=== PATIENT | female | born 1960 ===

== ENCOUNTER 2018-06-01 10:25 | Emergency (ER) | payer OTHER ==
--- OUTSIDE RECORDS SUMMARY | 2018-06-01 10:34 | XMS REPORT ---
:1960 External Reference #:[id number] Demographics Address [address] [place] [address] Home Phone [phone] Mobile Phone [phone] Preferred Language Khmer Marital Status Not Or Samaritan Affiliation Unknown Race White Ethnic Group Not Or Author Organization [facility] 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 General Cancer both parents Father Rectal Cancer Father due to Rectal Cancer () Mother Breast Cancer Mother Stroke Social History Type Date Description Comments Marital Status Patient is Lives With Alone Diet Patient follows no dietary restrictions Occupation Currently Working full-time [employer] [employer] [facility]. 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 ADL's/IADL's Independent with all ADL's Cigarette Use Patient is a current cigarette smoker, smokes every day Cigarette Use currently smokes 1/2 Pack - 3/4 pack x 38 yeras Daily ETOH Use Rarely consumes alcohol Recreational Drug Use Denies Drug Use Daily Caffeine Current Caffeine User Exercise Type/Frequency Walks daily Exercise Type/Frequency Does housework daily Allergies, Adverse Reactions, Alerts Date Description Reaction Status Severity Comments 05/04/2011 NKDA active Medications Medication Date Status Form Strength Qnty SIG Indications Ordering Provider Zyrtec Allergy Active Capsules 10mg 1 by Unknown 00 mouth every day Aleve Active Capsules 220mg 2 by Unknown 00 mouth every day if needed for pain No Active 05/04/20 Hx ReinaYadiel Medications Belle De La Rosa MD, PhD 05/23/20 18 Medications Administered in Office Medication Date Status Form Strength Qnty SIG Indications Ordering Provider Betamethasone Administered Injection Truong, Acetate & Sodium 2018 Marly Alba, Phosphate 3 MG RPAC Of Each Vital Signs Date Vital Result Comment 05/23/2018 BP Systolic 138 mmHg BP Diastolic 78 mmHg Body Temperature 97.6 F Heart Rate 72 /min Height 68 inches 5'8" Weight 147.00 lb BMI (Body Mass Index) 22.3 kg/m2 BSA (Body Surface Area) 1.79 m2 [place] body weight in kilograms 63 O2 % BldC Oximetry 97 % Pain Level 2 05/04/2011 BP Systolic Sitting Right Arm 130 mmHg BP Diastolic Sitting Right Arm 80 mmHg Heart Rate 78 /min regular Respiratory Rate 16 /min Height 68 inches 5'8" Weight 145.00 lb BMI (Body Mass Index) 22.0 kg/m2 Results Description No Information Procedures Date CPT Code Description Status 05/23/2018 67068 Injection:Tendon Sheath,Lig. Cyst Completed 05/10/2011 17413 ECHO Transthoracic Inc Performance Continuous Completed Electrocardio 05/10/2011 64622 Event Monitor Inter/Review Only Completed 05/04/2011 72781 EKG-Tracing And Report Completed 05/04/2011 65661 EKG-Tracing And Report Completed Encounters Type Date Location Provider CPT E/M Dx Office Visit 05/23/2018 10:45a Orthopaedic Office Marly Truong, [address]706 M65.331 RPAC M79.644 Office Visit 05/04/2011 9:40a Cardiology Office Marily Pichardo ANP [address] [phone] Plan of Care Future Appointment(s):06/20/2018 3:15 pm - Marly Truong, RPAC at Orthopaedic Mgjref0305/23/2018 - Marly Truong, RPACM65.331 Trigger finger, right middle emyaarB97.644 Pain in right finger(s)AllComments:Treatment options were discussed. I recommended a steroid injection and she was agreeable to this.A separate note was dictated. I suggested ice for the next couple of days. She will follow-up in four weeks, sooner with any problems or concerns.
--- OUTSIDE RECORDS SUMMARY | 2018-06-01 10:35 | XMS REPORT ---
:1960 External Reference #:[id number] Demographics Address [address] [place] [address] Home Phone [phone] Mobile Phone [phone] Preferred Language Bermudian Marital Status Not Or Gnosticism Affiliation Unknown Race White Ethnic Group Not Or Author Organization [facility] Address [address], [address] [place] [address] Phone [phone] Care Team Providers Name Role Phone Joshua Kumar PA Care Team Information Smoke And Flame Specialist Unavailable Joshua Kumar PA Primary Care Physician Unavailable Payers Type Date Identification Numbers Payment Provider Subscriber Commercial Policy Number: [id number] Vonnie/Peg Dillon Vanessa Albarran PayID: [id number] [address] [place] [address] Problems Description No Information Family History Date Family Member(s) Problem(s) Comments General No known family history of CAD. General Cancer both parents Father Rectal Cancer Father due to Rectal Cancer () Mother Breast Cancer Mother Stroke Social History Type Date Description Comments Marital Status Patient is Lives With Alone Diet Patient follows no dietary restrictions Occupation Currently Working full-time [employer] [facility]. 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 ADL's/IADL's Independent with all [...] needed for pain No Active 05/04/20 Hx HuangYadiel Medications Belle De La Rosa MD, PhD 05/23/20 18 Medications Administered in Office Medication Date Status Form Strength Qnty SIG Indications Ordering Provider Betamethasone 05/23/ Administered Injection Truong, Acetate & Sodium 2018 Marly Alba, Phosphate 3 MG RPAC Of Each Vital Signs Date Vital Result Comment 05/23/2018 BP Systolic 138 mmHg BP Diastolic 78 mmHg Body Temperature 97.6 F Heart Rate 72 /min Height 68 inches 5'8" Weight 147.00 lb BMI (Body Mass Index) 22.3 kg/m2 BSA (Body Surface Area) 1.79 m2 [place] body weight in kilograms 63 O2 % BldC Oximetry 97 % Pain Level 2 05/04/2011 BP Systolic Sitting Right Arm 130 mmHg BP Diastolic Sitting Right Arm 80 mmHg Heart Rate 78 /min regular Respiratory Rate 16 /min Height 68 inches 5'8" Weight 145.00 lb BMI (Body Mass Index) 22.0 kg/m2 Results Description No Information Procedures Date CPT Code Description Status 05/23/2018 58288 Injection:Tendon Sheath,Lig. Cyst Completed 05/10/2011 22767 ECHO Transthoracic Inc Performance Continuous Completed Electrocardio 05/10/2011 97025 Event Monitor Inter/Review Only Completed 05/04/2011 12941 EKG-Tracing And Report Completed 05/04/2011 03754 EKG-Tracing And Report Completed Encounters Type Date Location Provider CPT E/M Dx Office Visit 05/23/2018 10:45a Orthopaedic Office Marly Truong, 72304 M65.331 RPAC Office Visit 05/04/2011 9:40a Cardiology Office Marily Pichardo ANP 94407 [phone] Plan of Care Future Appointment(s):06/20/2018 3:15 pm - Marly Truong, RPAC at Orthopaedic Ddfksi8905/23/2018 - Marly Truong, RPACM65.331 Trigger finger, right middle finger
[2018-06-01] MEDS ORDERED: Albuterol/Ipratropium NEB.SOL* Albuterol 2.5 MG/Ipratropium 0.5 MG 3 ML INH ONE (10:42)
--- NOTE | 2018-06-01 10:44 | UC ---
Respiratory Complaint HPI - HPI Summary HPI Summary: Pt presents with c/o chest congestion, cough, SOB, wheezing X 7 days. Pt has been using nebulizer at home with albuterol, and albuterol INH. Pt reports that her cough, SOB and wheezing have been worsening over last 24 hours. Pt is seated, unable to complete full sentence without coughing, pt is "tripodding" and is using accessory chest muscle to breath. - History of Current Complaint Stated Complaint: CHEST CONGESTION, COUGH Time Seen by Provider: 06/01/18 10:35 Hx Obtained From: Patient ?: No Onset/Duration: Gradual Onset, Lasting Days - 7, Still Present, Worse Since - onset Timing: Constant Severity Initially: Mild Severity Currently: Severe Character: Cough: Nonproductive Aggravating Factors: Exertion, Deep Breaths, Recumbent Position Alleviating Factors: Nothing Associated Signs And Symptoms: Positive: Wheezing, URI, Nasal Congestion - Risk Factors Pulmonary Embolism Risk Factors: Negative Cardiac Risk Factors: Negative Pseudomonas Risk Factors: Negative Tuberculosis Risk Factors: Negative - Allergies/Home Medications Allergies/Adverse Reactions: Allergies Allergy/AdvReac Type Severity Reaction Status Date / Time No Known Allergies Allergy Verified 06/01/18 10:36 Home Medications: Home Medications Cetirizine* [ZyrTEC 10 MG TAB*] 10 mg PO DAILY 06/01/18 [History Confirmed 06/01] Naproxen Sodium [Aleve] 220 mg PO PRN 06/01/18 [History] PMH/Surg Hx/FS Hx/Imm Hx Previously Healthy: Yes Respiratory History: COPD - Surgical History Surgical History: Yes Surgery Procedure, Year, and Place: hysterectomy - Family History Known Family History: Positive: Cardiac Disease - Social History Occupation: Employed Full-time Lives: With Family Substance Use Type: None Smoking Status (MU): Heavy Every Day Tobacco Smoker Type: Cigarettes Have You Smoked in the Last Year: Yes Review of Systems Constitutional: Negative Skin: Negative Eyes: Negative ENT: Negative Respiratory: Shortness Of Breath, Cough Cardiovascular: Chest Pain Gastrointestinal: Negative Genitourinary: Negative Neurovascular: Negative Musculoskeletal: Negative Neurological: Headache, Weakness Psychological: Negative Is Patient Immunocompromised?: No All Other Systems Reviewed And Are Negative: Yes Physical Exam Triage Information Reviewed: Yes Appearance: Ill-Appearing, Pain Distress Vital Signs Reviewed: Yes Eye Exam: Normal ENT Exam: Normal Dental Exam: Normal Neck exam: Normal Respiratory: Positive: Decreased breath sounds, Accessory muscle use, Wheezing Cardiovascular: Positive: Tachycardia Musculoskeletal Exam: Normal Neurological Exam: Normal Psychological Exam: Normal Skin Exam: Normal Respiratory Course/Dx - Course Course Of Treatment: Pt was sent via amblulance with ALS monitoring - Differential Dx/Diagnosis Differential Diagnosis/HQI/PQRI: Bronchitis, Exacerbation Of COPD Provider Diagnoses: acuter respiratiory distress - Physician Notification/Consults Discussed Patient Care With: Dr. Morris - accepted for transfer Time Discussed With Above Provider: 15:00 Discharge - Sign-Out/Discharge Documenting (check all that apply): Patient Departure All imaging exams completed and their final reports reviewed: No Studies - Discharge Plan Condition: Stable Disposition: TRANS HIGHER LVL OF CARE FAC Patient Education Materials: Shortness of Breath (ED) Referrals: No Primary Care Phys,NOPCP [Primary Care Provider] - - Billing Disposition and Condition Condition: STABLE Disposition: Trans Higher Lvl of Care Fac
[2018-06-01] MEDS ORDERED: methylPREDNISolone 125 MG* 2 ML VIAL IM ONE (10:45)
[2018-06-01] MEDS ORDERED: Benzonatate CAP* 100 MG PO ONE (11:08)
[2018-06-01 11:40] VITALS: BP 158/81
== END 2018-06-01 11:35 | disposition short-term general hospital (02) ==
LOC: UCCORT 10:25
DX: R06.03 Acute respiratory distress (principal); F17.210 Nicotine dependence, cigarettes, uncomplicated
CPT/HCPCS: 96372; 99213; A9270-GY; G0463; J2930